=== PATIENT | female | born 1980 | race Two or more races ===

== ENCOUNTER → 2018-01-23 | Outpatient (CLI) | payer OTHER ==
--- NOTE | 2018-01-23 10:47 | KCIC ---
MRI Brain without contrast History: Blurred vision, neck pain and headaches since October Technique: Multiplanar, multisequential noncontrast MR imaging was performed of the brain. Contrast: None Comparison: None Findings: There is no evidence of recent infarct or cytotoxic edema. The ventricles, sulci, and cisterns are within normal limits in size and configuration. There is no significant midline shift, intraaxial mass effect, or focal abnormal extra-axial fluid collection. There is no significant signal abnormality of the brain parenchyma. There is preservation of the major intracranial flow-voids at the skull base. The mastoid air cells are aerated. The cerebellar tonsils are normal in location. There is no significant abnormality of the pineal gland. There is left sphenoid sinus mucous retention cyst. There is negligible patchy ethmoid air cell mucosal thickening. There is nonspecific heterogeneity of the marrow of the nonexpanded clivus, may be due to residual red marrow in a patient this age. Pituitary gland is not considered enlarged, infundibulum seen on axial images near the midline. There is no deviation of the optic chiasm. Impression: 1. There is no significant intracranial abnormality. There is left sphenoid sinus mucous retention cyst. Electronically signed by: Vernon Santoro MD (01/23/2018 10:43 AM) [email or web address]
--- NOTE | 2018-01-23 16:54 | KCIC ---
CERVICAL SPINE 2-3V History: Neck pain and headaches since October Comparison: December 04, 2017 Findings: 4 views of the cervical spine are submitted. There is adequate alignment of lateral masses C1 relative to C2. Cervical vertebral body stature and AP alignment are maintained. Intervertebral disc spaces are adequate. No acute osseous abnormality is identified by radiographs. Atlantoaxial distance is within normal limits. Impression: 1. No new significant abnormality is identified by radiographs. Electronically signed by: Vernon Santoro MD (01/23/2018 4:51 PM) [email or web address]
== END | disposition home or self-care (01) ==
LOC: KCIC MRI 09:16
PROVIDERS: ATTEND Family Medicine
DX: J34.1 Cyst and mucocele of nose and nasal sinus (principal); M54.2 Cervicalgia
CPT/HCPCS: 70551; 72040

== ENCOUNTER 2020-02-26 09:04 | Day surgery (SDC) | payer OTHER ==
[~2020-02-26] VITALS: Ht 167.6 cm; Wt 81.6 kg
--- NOTE | 2020-02-26 06:54 | PREOP HP ---
DATE OF SERVICE: HISTORY OF PRESENT ILLNESS: The patient has a history of left inguinal hernia repair about 6-8 months ago. She has done well since then and after surgery this summer, she was noted to have a mass at the umbilicus. In fact, she had a CT scan, which showed a ventral hernia and a left paraumbilical hernia. There was no umbilical hernia at present. This mass is there. It caused some tenderness and pain and she wishes to have it repaired. PAST MEDICAL HISTORY: Basically negative. She has had normal childhood diseases. She does have a history of GERD for which she takes medication from time to time. This has been diagnosed by another physician and states that she does have that reflux at times. No surgery except for the left inguinal hernia repair about 6 months ago. 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 Otherwise, she is doing relatively well. ALLERGIES: She has no allergies. MEDICATIONS: Takes no medication. SOCIAL HISTORY: She does not use illicit drugs. She does not smoke and does not drink. FAMILY HISTORY: Positive in that she had I think her father had an inguinal hernia repaired years ago. REVIEW OF SYSTEMS: Negative except for the supraumbilical pain where the hernia is. The hernia sac varies in size, but could not be reduced and it is about 3-4 cm in size at this examination. PHYSICAL EXAMINATION: GENERAL: Shows an alert female in no acute distress. HEAD, EYES, EARS, NOSE AND THROAT: Grossly unremarkable. CHEST: Clear. HEART: She had no murmurs, heaves, friction rubs or thrills on auscultation of the heart. ABDOMEN: The incision in the groin has healed. There is no evidence of any inguinal hernia. Abdomen was negative. Had no organomegaly, no masses except for at the supraumbilical area into the left, however, there is a mass, which was not reducible, this is a hernia. It is somewhat tender to touch, though the imaging [facility] did show that there was no bowel in the hernia at that point. EXTREMITIES: Grossly normal. PELVIC: Not done. RECTAL: Not done. IMPRESSION: 1. Gastroesophageal reflux disease. 2. Ventral hernia. PLAN: She wishes to have the hernia repaired, understands the risk and we will proceed to have this done. BRISA SANCHEZ MD DR: ANTONETTE/nidhi JOB#: [id number] / [id number]
[~2020-02-26 09:04] MED LIST: BUPIVACAINE-EPI 0.5%-1:200000 MPF 30 ML VIAL. INJ ONE; HYDROmorphone 2 MG/ML VIAL IV PRN; IV RINGERS,LACTATED 1000ML 1,000 ML IV SCH; LIDOCAINE 1% PF 2 ML VIAL. ID PRN; MORPHINE SULFATE 2 MG/ML VIAL. IV PRN; ONDANSETRON PF 4 MG/2 ML VIAL. IV PRN; PROCHLORPERAZINE 10 MG/2 ML VIAL. IV PRN; ceFAZolin SODIUM IV Push 1 GM VIAL. IVP PRN; fentaNYL PF VIAL 100 MCG/2 ML VIAL IV PRN
[2020-02-26 09:55] LABS: BASO % 0 % (0-3); EOS # 0.1 x10^3/uL (0.0-0.7); EOS % 1 % (0-3); HEMATOCRIT 37.1 % (36.0-47.0); HEMOGLOBIN 12.3 g/dL (12.0-15.5); LYMPH # 1.6 x10^3/uL (1.0-4.8); LYMPH % 28 % (24-48); MEAN CORPUSCULAR HEMOGLOBIN 27 pg (25-35); MEAN CORPUSCULAR HGB CONC 33 g/dL (31-37); MEAN CORPUSCULAR VOLUME 82 fL (79-100); MONO # 0.4 x10^3/uL (0.0-1.1); MONO % 7 % (0-9); NEUT # 3.8 x10^3/uL (1.8-7.7); NEUT % 64 % (31-73); PLATELET COUNT 217 x10^3/uL (140-400); RED BLOOD COUNT 4.51 x10^6/uL (3.50-5.40); RED CELL DISTRIBUTION WIDTH 13.9 % (11.5-14.5); WHITE BLOOD COUNT 5.9 x10^3/uL (4.0-11.0)
[2020-02-26 10:03] LABS: CALCIUM 8.6 mg/dL (8.5-10.1); CREATININE 0.7 mg/dL (0.6-1.0); GFR 92.7; POTASSIUM 3.3 mmol/L (3.5-5.1)
[2020-02-26 10:09] LABS: ALBUMIN 3.5 g/dL (3.4-5.0); ALBUMIN/GLOBULIN RATIO 0.9 (1.0-1.7); TOTAL BILIRUBIN 0.6 mg/dL (0.2-1.0); TOTAL PROTEIN 7.3 g/dL (6.4-8.2)
[2020-02-26 10:11] LABS: PROTHROMBIN TIME PATIENT 12.3 SEC (11.7-14.0)
[2020-02-26] MEDS ORDERED: GLYCOPYRROLATE 1 MG/5 ML VIAL. ONE (10:28)
[2020-02-26] MEDS ORDERED: SEVOFLURANE > 120 MINUTES. IH ONE ×2 (10:28→13:17)
[2020-02-26] MEDS ORDERED: ROCURONIUM 50 MG/5 ML VIAL. ONE (10:28)
[2020-02-26] MEDS ORDERED: MIDAZOLAM HCL/PF 2 MG/2 ML VIAL. ONE (10:28)
[2020-02-26] MEDS ORDERED: DEXAMETHASONE SOD PHOS 4 MG/ML VIAL ONE (10:29)
[2020-02-26] MEDS ORDERED: LIDOCAINE 2% PF 5 ML VIAL. ONE (10:29)
[2020-02-26] MEDS ORDERED: FAMOTIDINE 20 MG/2 ML VIAL ONE (10:29)
[2020-02-26] MEDS ORDERED: PROPOFOL 10 MG/ML (20ML) VIAL. IV ONE (10:29)
[2020-02-26] MEDS ORDERED: ONDANSETRON PF 4 MG/2 ML VIAL. ONE (10:29)
--- NOTE | 2020-02-26 10:56 | PDOC ---
SURGICAL PROGRESS NOTE DATE: 02/26/20 TIME: 10:55 No change in dictated H&P. Vital Signs Vital Signs Date Time Temp Pulse Resp B/P (MAP) Pulse Ox O2 Delivery O2 Flow Rate FiO2 02/26/20 09:39 97.3 90 20 128/67 99 Room Air 97.3 Labs Laboratory Tests Test 02/26/20 09:22 02/26/20 09:37 Bedside Urine HCG, Qualitative Hcg negative (Negative) White Blood Count 5.9 x10^3/uL (4.0-11.0) Red Blood Count 4.51 x10^6/uL (3.50-5.40) Hemoglobin 12.3 g/dL (12.0-15.5) Hematocrit 37.1 % (36.0-47.0) Mean Corpuscular Volume 82 fL (79-100) Mean Corpuscular Hemoglobin 27 pg (25-35) Mean Corpuscular Hemoglobin Concent 33 g/dL (31-37) Red Cell Distribution Width 13.9 % (11.5-14.5) Platelet Count 217 x10^3/uL (140-400) Neutrophils (%) (Auto) 64 % (31-73) Lymphocytes (%) (Auto) 28 % (24-48) Monocytes (%) (Auto) 7 % (0-9) Eosinophils (%) (Auto) 1 % (0-3) Basophils (%) (Auto) 0 % (0-3) Neutrophils # (Auto) 3.8 x10^3/uL (1.8-7.7) Lymphocytes # (Auto) 1.6 x10^3/uL (1.0-4.8) Monocytes # (Auto) 0.4 x10^3/uL (0.0-1.1) Eosinophils # (Auto) 0.1 x10^3/uL (0.0-0.7) Basophils # (Auto) 0.0 x10^3/uL (0.0-0.2) Prothrombin Time 12.3 SEC (11.7-14.0) Prothromb Time International Ratio 1.0 (0.8-1.1) Sodium Level 140 mmol/L (136-145) Potassium Level 3.3 mmol/L (3.5-5.1) Chloride Level 104 mmol/L (98-107) Carbon Dioxide Level 26 mmol/L (21-32) Anion Gap 10 (6-14) Blood Urea Nitrogen 14 mg/dL (7-20) Creatinine 0.7 mg/dL (0.6-1.0) Estimated GFR (Cockcroft-Gault) 92.7 BUN/Creatinine Ratio 20 (6-20) Glucose Level 87 mg/dL (70-99) Calcium Level 8.6 mg/dL (8.5-10.1) Total Bilirubin 0.6 mg/dL (0.2-1.0) Aspartate Amino Transf (AST/SGOT) 21 U/L (15-37) Alanine Aminotransferase (ALT/SGPT) 18 U/L (14-59) Alkaline Phosphatase 91 U/L (46-116) Total Protein 7.3 g/dL (6.4-8.2) Albumin 3.5 g/dL (3.4-5.0) Albumin/Globulin Ratio 0.9 (1.0-1.7) Laboratory Tests Test 02/26/20 09:22 02/26/20 09:37 Bedside Urine HCG, Qualitative Hcg negative (Negative) White Blood Count 5.9 x10^3/uL (4.0-11.0) Red Blood Count 4.51 x10^6/uL (3.50-5.40) Hemoglobin 12.3 g/dL (12.0-15.5) Hematocrit 37.1 % (36.0-47.0) Mean Corpuscular Volume 82 fL (79-100) Mean Corpuscular Hemoglobin 27 pg (25-35) Mean Corpuscular Hemoglobin Concent 33 g/dL (31-37) Red Cell Distribution Width 13.9 % (11.5-14.5) Platelet Count 217 x10^3/uL (140-400) Neutrophils (%) (Auto) 64 % (31-73) Lymphocytes (%) (Auto) 28 % (24-48) Monocytes (%) (Auto) 7 % (0-9) Eosinophils (%) (Auto) 1 % (0-3) Basophils (%) (Auto) 0 % (0-3) Neutrophils # (Auto) 3.8 x10^3/uL (1.8-7.7) Lymphocytes # (Auto) 1.6 x10^3/uL (1.0-4.8) Monocytes # (Auto) 0.4 x10^3/uL (0.0-1.1) Eosinophils # (Auto) 0.1 x10^3/uL (0.0-0.7) Basophils # (Auto) 0.0 x10^3/uL (0.0-0.2) Prothrombin Time 12.3 SEC (11.7-14.0) Prothromb Time International Ratio 1.0 (0.8-1.1) Sodium Level 140 mmol/L (136-145) Potassium Level 3.3 mmol/L (3.5-5.1) Chloride Level 104 mmol/L (98-107) Carbon Dioxide Level 26 mmol/L (21-32) Anion Gap 10 (6-14) Blood Urea Nitrogen 14 mg/dL (7-20) Creatinine 0.7 mg/dL (0.6-1.0) Estimated GFR (Cockcroft-Gault) 92.7 BUN/Creatinine Ratio 20 (6-20) Glucose Level 87 mg/dL (70-99) Calcium Level 8.6 mg/dL (8.5-10.1) Total Bilirubin 0.6 mg/dL (0.2-1.0) Aspartate Amino Transf (AST/SGOT) 21 U/L (15-37) Alanine Aminotransferase (ALT/SGPT) 18 U/L (14-59) Alkaline Phosphatase 91 U/L (46-116) Total Protein 7.3 g/dL (6.4-8.2) Albumin 3.5 g/dL (3.4-5.0) Albumin/Globulin Ratio 0.9 (1.0-1.7) Justicifation of Admission Dx: Justifications for Admission: Justification of Admission Dx: Yes BRISA SANCHEZ MD Feb 26, 2020 10:56
--- NOTE | 2020-02-26 11:03 | PDOC ---
SURGICAL PROGRESS NOTE DATE: 02/26/20 TIME: 10:56 Op Note: Surgeon...................................................Steve Pre op diag...............................................Incarcerated ventral hernia Psot op diag.............................................same Anestrhesia..............................................general Procedure................................................repair incarc ventral hernia with mesh Blood loss................................................10cc Fluids......................................................see anesth sheet Drains.....................................................none Condition.................................................satisfactory Vital Signs Vital Signs Date Time Temp Pulse Resp B/P (MAP) Pulse Ox O2 Delivery O2 Flow Rate FiO2 02/26/20 09:39 97.3 90 20 128/67 99 Room Air 97.3 Labs Laboratory Tests Test 02/26/20 09:22 02/26/20 09:37 Bedside Urine HCG, Qualitative Hcg negative (Negative) White Blood Count 5.9 x10^3/uL (4.0-11.0) Red Blood Count 4.51 x10^6/uL (3.50-5.40) Hemoglobin 12.3 g/dL (12.0-15.5) Hematocrit 37.1 % (36.0-47.0) Mean Corpuscular Volume 82 fL (79-100) Mean Corpuscular Hemoglobin 27 pg (25-35) Mean Corpuscular Hemoglobin Concent 33 g/dL (31-37) Red Cell Distribution Width 13.9 % (11.5-14.5) Platelet Count 217 x10^3/uL (140-400) Neutrophils (%) (Auto) 64 % (31-73) Lymphocytes (%) (Auto) 28 % (24-48) Monocytes (%) (Auto) 7 % (0-9) Eosinophils (%) (Auto) 1 % (0-3) Basophils (%) (Auto) 0 % (0-3) Neutrophils # (Auto) 3.8 x10^3/uL (1.8-7.7) Lymphocytes # (Auto) 1.6 x10^3/uL (1.0-4.8) Monocytes # (Auto) 0.4 x10^3/uL (0.0-1.1) Eosinophils # (Auto) 0.1 x10^3/uL (0.0-0.7) Basophils # (Auto) 0.0 x10^3/uL (0.0-0.2) Prothrombin Time 12.3 SEC (11.7-14.0) Prothromb Time International Ratio 1.0 (0.8-1.1) Sodium Level 140 mmol/L (136-145) Potassium Level 3.3 mmol/L (3.5-5.1) Chloride Level 104 mmol/L (98-107) Carbon Dioxide Level 26 mmol/L (21-32) Anion Gap 10 (6-14) Blood Urea Nitrogen 14 mg/dL (7-20) Creatinine 0.7 mg/dL (0.6-1.0) Estimated GFR (Cockcroft-Gault) 92.7 BUN/Creatinine Ratio 20 (6-20) Glucose Level 87 mg/dL (70-99) Calcium Level 8.6 mg/dL (8.5-10.1) Total Bilirubin 0.6 mg/dL (0.2-1.0) Aspartate Amino Transf (AST/SGOT) 21 U/L (15-37) Alanine Aminotransferase (ALT/SGPT) 18 U/L (14-59) Alkaline Phosphatase 91 U/L (46-116) Total Protein 7.3 g/dL (6.4-8.2) Albumin 3.5 g/dL (3.4-5.0) Albumin/Globulin Ratio 0.9 (1.0-1.7) Laboratory Tests Test 02/26/20 09:22 02/26/20 09:37 Bedside Urine HCG, Qualitative Hcg negative (Negative) White Blood Count 5.9 x10^3/uL (4.0-11.0) Red Blood Count 4.51 x10^6/uL (3.50-5.40) Hemoglobin 12.3 g/dL (12.0-15.5) Hematocrit 37.1 % (36.0-47.0) Mean Corpuscular Volume 82 fL (79-100) Mean Corpuscular Hemoglobin 27 pg (25-35) Mean Corpuscular Hemoglobin Concent 33 g/dL (31-37) Red Cell Distribution Width 13.9 % (11.5-14.5) Platelet Count 217 x10^3/uL (140-400) Neutrophils (%) (Auto) 64 % (31-73) Lymphocytes (%) (Auto) 28 % (24-48) Monocytes (%) (Auto) 7 % (0-9) Eosinophils (%) (Auto) 1 % (0-3) Basophils (%) (Auto) 0 % (0-3) Neutrophils # (Auto) 3.8 x10^3/uL (1.8-7.7) Lymphocytes # (Auto) 1.6 x10^3/uL (1.0-4.8) Monocytes # (Auto) 0.4 x10^3/uL (0.0-1.1) Eosinophils # (Auto) 0.1 x10^3/uL (0.0-0.7) Basophils # (Auto) 0.0 x10^3/uL (0.0-0.2) Prothrombin Time 12.3 SEC (11.7-14.0) Prothromb Time International Ratio 1.0 (0.8-1.1) Sodium Level 140 mmol/L (136-145) Potassium Level 3.3 mmol/L (3.5-5.1) Chloride Level 104 mmol/L (98-107) Carbon Dioxide Level 26 mmol/L (21-32) Anion Gap 10 (6-14) Blood Urea Nitrogen 14 mg/dL (7-20) Creatinine 0.7 mg/dL (0.6-1.0) Estimated GFR (Cockcroft-Gault) 92.7 BUN/Creatinine Ratio 20 (6-20) Glucose Level 87 mg/dL (70-99) Calcium Level 8.6 mg/dL (8.5-10.1) Total Bilirubin 0.6 mg/dL (0.2-1.0) Aspartate Amino Transf (AST/SGOT) 21 U/L (15-37) Alanine Aminotransferase (ALT/SGPT) 18 U/L (14-59) Alkaline Phosphatase 91 U/L (46-116) Total Protein 7.3 g/dL (6.4-8.2) Albumin 3.5 g/dL (3.4-5.0) Albumin/Globulin Ratio 0.9 (1.0-1.7) Justicifation of Admission Dx: Justifications for Admission: Justification of Admission Dx: Yes BRISA SANCHEZ MD Feb 26, 2020 11:03
[2020-02-26] MEDS ORDERED: fentaNYL PF VIAL 100 MCG/2 ML VIAL ONE (11:38)
[2020-02-26] MEDS ORDERED: NEOSTIGMINE METHYLSULFATE 5 MG/5 ML SYRINGE. ONE (12:36)
[2020-02-26] MEDS ORDERED: BUPIVACAINE-EPI 0.5%-1:200000 MPF 30 ML VIAL. INJ ONE (12:45)
[2020-02-26] MEDS ORDERED: KETOROLAC 30 MG/ML VIAL. ONE ×2 (13:12)
--- NOTE | 2020-02-26 13:19 | DISCH ---
DISCHARGE INSTRUCTIONS Condition on Discharge Condition on Discharge: Stable Activity After Discharge Activity Instructions for Disc: Avoid exertion Sexual Activity Restrictions: no Diet after Discharge Diet after Discharge: Clear Liquid Wound Incision Care Other wound/incision instructi: do not change dressing..may shower Follow-Up Follow up with: Kirby dhillon in 2 weeks BRISA DHILLON MD Feb 26, 2020 13:19
[2020-02-26] MEDS ORDERED: OXYC1TAB19 PO (14:00)
[2020-02-26] MEDS ORDERED: oxyCODONE/APAP 7.5/325 1 TAB TABLET PO ONE (14:00)
[2020-02-26 14:19] VITALS: BP 120/65
--- NOTE | 2020-02-27 00:38 | OP ---
DATE OF SURGERY: 02/26/2020 SURGEON: Jack Sanchez MD PREOPERATIVE DIAGNOSIS: Incarcerated ventral hernias x 2. POSTOPERATIVE DIAGNOSIS: Incarcerated ventral hernias x 2. ANESTHESIA: General. PROCEDURE: Repair of incarcerated ventral hernias. TECHNIQUE: Under general anesthesia, the patient was properly prepped and draped in the routine fashion. The hernias were known to be per CT scan above the umbilicus and somewhat to the left. We therefore made a transverse incision following the skin lines about an inch or two above the umbilicus. We carried this through the skin, we used a #15 blade. We then went through the subcutaneous using cautery and also Metzenbaum scissors. We got down to the first mass, which was more or less somewhat to the left of the midline, but almost in the midline. The actual hernia sac could not be reduced. It had to be freed up from the surrounding structures and was not very large at this time. Clinically, it had been large at various times. We then freed this up and then identified more and more medially and inferior to this. There was no hernia that could be identified at the umbilicus clearly. We found these two hernias that were by about 1.5 cm of the fascia. We freed both up. We were able to invert them and reduce them. The actual product of preperitoneal fat was about as big as she ____. We then used mesh, which was a Bard mesh, and in fact cut it so that it could be fit into both areas with underlying ____ into the anterior abdominal wall. We did not enter the peritoneal cavity as we placed this fashion patch under both ____ and then sutured them using 2-0 Prolene to the fascia inferiorly and superiorly. This covered both areas and we then sutured them to the lateral nevarez also. This laid the patch there and we then used #1 Prolene to approximate both hernias using interrupted sutures. After having put the patch and freed these up and closed the hernia, we inspected the area and there was no bleeding. Then, we injected the fascia with 0.5% Marcaine and epinephrine. We used about 23 mL. The subcutaneous was then irrigated with saline and then approximated using 4-0 Vicryl. The skin was then closed using a subcuticular 5-0 Vicryl. Sterile Tegaderm dressings were applied and the procedure was terminated. The blood loss was about 5-10 mL. Fluids given can be obtained from the anesthesia sheet. No drains were used and the condition of the patient was satisfactory as she has returned to the recovery room. JACK SANCHEZ MD DR: ANTONETTE/nidhi JOB#: [id number] / [id number]
== END 2020-02-26 14:47 | disposition home or self-care (01) ==
LOC: SURG 09:04
PROVIDERS: ATTEND Specialist
DX: K43.6 Other and unspecified ventral hernia with obstruction, without gangrene (principal); Z79.899 Other long term (current) drug therapy; Z98.890 Other specified postprocedural states; Z88.8 Allergy status to other drugs, medicaments and biological substances
CPT/HCPCS: 36415; 49561; 49568; 80053; 81025; 85025; 85610; C1781; J0690; J1100; J1885; J2250; J2405; J2704; J2710; J3010; J3490; J7120

== ENCOUNTER → 2020-11-26 | Outpatient (CLI) | payer OTHER ==
[~2020-11-26] MED LIST changes: -BUPIVACAINE-EPI 0.5%-1:200000 MPF 30 ML VIAL. INJ ONE; -HYDROmorphone 2 MG/ML VIAL IV PRN; -IV RINGERS,LACTATED 1000ML 1,000 ML IV SCH; -LIDOCAINE 1% PF 2 ML VIAL. ID PRN; -MORPHINE SULFATE 2 MG/ML VIAL. IV PRN; -ONDANSETRON PF 4 MG/2 ML VIAL. IV PRN; +OXYC1TAB19 PO; -PROCHLORPERAZINE 10 MG/2 ML VIAL. IV PRN; -ceFAZolin SODIUM IV Push 1 GM VIAL. IVP PRN; -fentaNYL PF VIAL 100 MCG/2 ML VIAL IV PRN
--- NOTE | 2020-11-26 09:20 | RAD ---
EXAM: Sonographic guided right breast biopsy; sonographic guided right breast biopsy clip placement; right breast postbiopsy mammogram. HISTORY: 39-year-old female presents for sonographic guided biopsy of a mass within the right breast demonstrated on the study performed at an outside facility. TECHNIQUE: The risks of the procedure were discussed with the patient and written and verbal consent was obtained via an wheel alignment technician. A timeout was performed. Sonographic imaging of the right breast was performed and the lesion of concern at the 10:00 position 7 cm from nipple was identified. This is h ypoechoic with irregular margins and measures approximately 4.1 cm. The skin overlying this location was sterilely prepped, draped and infiltrated with 1 percent lidocaine. Multiple core sample were obt ained through the lesion of concern with sonographic guidance and a biopsy clip was advanced into the biopsy bed. Manual compression was maintained until hemostasis was achieved. A sterile bandage was p laced. A post biopsy mammogram was obtained, demonstrating the biopsy clip in expected position. The patient tolerated the procedure without complication. IMPRESSION: Sonographic guided biopsy of a mass within the 10:00 position of the right breast 7 cm fr om the nipple and biopsy clip placement. An addendum to this report will be submitted when pathology results are available. Electronically signed by: Arleen Carranza MD (11/26/2020 9:18 AM) [id number]
== END | disposition home or self-care (01) ==
LOC: US 08:06
PROVIDERS: ATTEND Surgery
DX: N63.11 Unspecified lump in the right breast, upper outer quadrant (principal); R92.8 Other abnormal and inconclusive findings on diagnostic imaging of breast; Z79.899 Other long term (current) drug therapy
CPT/HCPCS: 19083; 77065